=== PATIENT | male | born 1955 | race African-American/Black ===

== ENCOUNTER 2017-04-09 18:26 | Emergency (ER) | payer OTHER ==
[~2017-04-09] VITALS: Ht 188 cm; Wt 95.3 kg
[~2017-04-09 18:26] MED LIST: ATEN25TA PO; IBUP-1060 PO; OXYC-328 PO; TRAM50TA PO
[2017-04-09 19:50] VITALS: BP 140/90
--- NOTE | 2017-04-13 06:09 | ED.ADGEN ---
Past Medical History Past Medical History: Anxiety, Bipolar, Depression, High Cholesterol, Hypertension, Schizophrenia Additional Past Medical Histor: chronic back pain Past Surgical History: No Surgical History Additional Past Surgical Histo: hernia, back surgery Alcohol Use: Occasionally Drug Use: Marijuana Adult General Chief Complaint Chief Complaint: PAIN CONTROL HPI HPI Patient is a 61 year old -[place] male with history of bipolar disorder who presents with request for narcotic medication refill. Patient states his PCP discontinued his OxyContin, Xanax and other narcotics approximately 3 days due to concerns with compliance with follow-up and medication overuse. Patient states he feels anxious and is starting to experience withdrawal symptoms. He reports generalized malaise and nausea. Denies chest pain palpitation shortness of breath vomiting and diarrhea. No fever chills, sweats, He denies withdrawal seizures. He is asking for medications to get him through this weekend until he can's follow-up with his PCP early next week. Patient states that his medications are for long-standing pain complaints and that he feels that it is unfair for his doctor to stop these abruptly. Review of Systems Review of Systems ROS as per HPI. Allergies Allergies Allergies Coded Allergies Type Severity Reaction Last Updated Verified No Known Drug Allergies 05/20/15 No Physical Exam Physical Exam Constitutional: Well developed, well nourished, no acute distress, non-toxic appearance. [] HENT: Normocephalic, atraumatic, bilateral external ears normal, oropharynx moist, no oral exudates, nose normal. [] Eyes: PERRLA, EOMI, conjunctiva normal, no discharge. [] Neck: Normal range of motion, no tenderness, supple, no stridor. [] Cardiovascular:Heart rate regular rhythm, no murmur [] Lungs & Thorax: Bilateral breath sounds clear to auscultation [] Abdomen: Bowel sounds normal, soft, no tenderness, no masses, no pulsatile masses. [] Skin: Warm, dry, no erythema, no rash. [] Back: No tenderness. [] Extremities: No tenderness, no cyanosis, no clubbing, ROM intact, no edema. [] Neurologic: Alert and oriented X 3, normal motor function, normal sensory function, no focal deficits noted. [] Psychologic: Affect normal, judgement normal, mood normal. [] Current Patient Data Vital Signs Vital Signs Date Time Temp Pulse Resp B/P (MAP) Pulse Ox O2 Delivery O2 Flow Rate FiO2 04/09/17 19:50 84 31 98 04/09/17 18:35 98.0 165/99 (121) Room Air 98.0 EKG EKG [] Radiology/Procedures Radiology/Procedures [] Course & Med Decision Making Course & Med Decision Making Pertinent Labs and Imaging studies reviewed. (See chart for details) [Patient with headache use findings in the ED. We'll prescribe patient short course of tramadol and antiemetics to help compensate for withdrawal symptoms. Will defer further management of chronic pain to the patient's PCP or management trainee.] Dragon Disclaimer Dragon Disclaimer This electronic medical record was generated, in whole or in part, using a voice recognition dictation system. OMERO DUNAWAY DO Apr 13, 2017 06:09
== END 2017-04-09 20:24 | disposition home or self-care (01) ==
LOC: ER 18:26
DX: Z76.0 Encounter for issue of repeat prescription (principal); R51 Headache; R53.81 Other malaise; R11.0 Nausea; F41.9 Anxiety disorder, unspecified; F31.9 Bipolar disorder, unspecified; E78.00 Pure hypercholesterolemia, unspecified; I10 Essential (primary) hypertension; F20.9 Schizophrenia, unspecified; F12.10 Cannabis abuse, uncomplicated
CPT/HCPCS: 99283

== ENCOUNTER 2017-04-11 08:18 | Emergency (ER) | payer OTHER ==
[~2017-04-11] VITALS: Ht 188 cm; Wt 95.3 kg
[2017-04-11 08:30] VITALS: BP 145/94
--- NOTE | 2017-04-11 09:01 | PHYS DOC ---
Past Medical History Past Medical History: Anxiety, Bipolar, Depression, High Cholesterol, Hypertension, Schizophrenia Additional Past Medical Histor: chronic back pain Past Surgical History: No Surgical History Additional Past Surgical Histo: hernia, back surgery Alcohol Use: Occasionally Drug Use: Marijuana Adult General Chief Complaint Chief Complaint: MEDICATION REFILL HPI HPI Patient is a 61 year old male with history of schizophrenia hypertension bipolar chronic back pain who presents requesting a prescription for medications that he was given yesterday from our ED. He states he was given prescriptions on a none prescription paper to present to the pharmacy, he states the pharmacy would not fill it they send him back to the ED to get an actual prescription. Review of Systems Review of Systems Constitutional: Denies fever or chills [] Eyes: Denies change in visual acuity, redness, or eye pain [] HENT: Denies nasal congestion or sore throat [] Respiratory: Denies cough or shortness of breath [] Cardiovascular: No additional information not addressed in HPI [] GI: Denies abdominal pain, nausea, vomiting, bloody stools or diarrhea [] : Denies dysuria or hematuria [] Musculoskeletal: Back pain Integument: Denies rash or skin lesions [] Neurologic: Denies headache, focal weakness or sensory changes [] Endocrine: Denies polyuria or polydipsia [] Allergies Allergies Allergies Coded Allergies Type Severity Reaction Last Updated Verified No Known Drug Allergies 05/20/15 No Physical Exam Physical Exam Constitutional: Well developed, well nourished, no acute distress, non-toxic appearance. [] HENT: Normocephalic, atraumatic, bilateral external ears normal, oropharynx moist, no oral exudates, nose normal. [] Eyes: PERRLA, EOMI, conjunctiva normal, no discharge. [] Neck: Normal range of motion, no tenderness, supple, no stridor. [] Cardiovascular:Heart rate regular rhythm, no murmur [] Lungs & Thorax: Bilateral breath sounds clear to auscultation [] Abdomen: Bowel sounds normal, soft, no tenderness, no masses, no pulsatile masses. [] Skin: Warm, dry, no erythema, no rash. [] Back: No tenderness, no CVA tenderness. [] Extremities: No tenderness, no cyanosis, no clubbing, ROM intact, no edema. [] Neurologic: Alert and oriented X 3, normal motor function, normal sensory function, no focal deficits noted. [] Psychologic: Affect normal, judgement normal, mood normal. [] Current Patient Data Vital Signs Vital Signs Date Time Temp Pulse Resp B/P (MAP) Pulse Ox O2 Delivery O2 Flow Rate FiO2 04/11/17 08:30 98.0 76 20 93 Room Air 98.0 EKG EKG [] Radiology/Procedures Radiology/Procedures [] Course & Med Decision Making Course & Med Decision Making Pertinent Labs and Imaging studies reviewed. (See chart for details) Patient is in the ED requesting we write a prescription for him because yesterday it was written on and none prescription paper. I did call [facility] on [address] and states to confirm this patient has not fever the prescription. This stated none was presented to the pharmacy. He did state patient receives alprazolam, oxycodone and OxyContin from the PCP. They did states he is due for a refill of all his pain medicines. I gave patient a prescription for atenolol 25 mg 1 tablet daily. I also gave him a prescription for tramadol 20tablets oxycodone 20 tablets and ibuprofen Dragon Disclaimer Dragon Disclaimer This electronic medical record was generated, in whole or in part, using a voice recognition dictation system. Departure Departure Impression: Primary Impression: Back pain Disposition: 01 HOME, SELF-CARE Condition: STABLE Referrals: NON,STAFF (PCP) follow up with your doctor next week Patient Instructions: Back Pain, Adult Additional Instructions: We highly recommend you follow-up with your primary care doctor for refills of all your medications. We will give you a short supply for today Scripts Ibuprofen (IBUPROFEN) 800 Mg Tablet 800 MG PO PRN Q6HRS Y for INFLAMMATION, #20 TAB Prov: LOTUS CAI SWINGING CUT OFF SAW OPERATOR 04/11/17 Oxycodone/Apap 10-325 (PERCOCET 10-325 MG TABLET) 1 Each Tablet 1 TAB PO Q4-6HRS, #20 TAB Prov: LOTUS CAI SWINGING CUT OFF SAW OPERATOR 04/11/17 Tramadol Hcl (TRAMADOL HCL) 50 Mg Tablet 1 TAB PO PRN Q6HRS, #20 TAB Prov: LOTUS CAI SWINGING CUT OFF SAW OPERATOR 04/11/17 Atenolol (ATENOLOL) 25 Mg Tablet 1 TAB PO DAILY, #20 TAB 5 Refills Prov: LOTUS CAI APRN 04/11/17 Problem Qualifiers Primary Impression: Back pain Back pain location: low back pain Chronicity: chronic Back pain laterality : bilateral Sciatica presence: with sciatica Sciatica laterality: bilateral sciatica Qualified Codes: M54.42 - Lumbago with sciatica, left side ; M54.41 - Lumbago with sciatica, right side; G89.29 - Other chronic pain LOTUS CAI SWINGING CUT OFF SAW OPERATOR Apr 11, 2017 09:01
[2017-04-11] MEDS ORDERED: OXYC-328 PO (09:08)
[2017-04-11] MEDS ORDERED: TRAM50TA PO (09:08)
[2017-04-11] MEDS ORDERED: IBUP-1060 PO (09:08)
[2017-04-11] MEDS ORDERED: ATEN25TA PO (09:08)
[2017-04-11] MEDS ORDERED: oxyCODONE/APAP 5/325 1 TAB TABLET PO ONE (09:45)
== END 2017-04-11 09:35 | disposition home or self-care (01) ==
LOC: ER 08:18
DX: Z76.0 Encounter for issue of repeat prescription (principal); G89.29 Other chronic pain; M54.41 Lumbago with sciatica, right side; F41.9 Anxiety disorder, unspecified; F31.9 Bipolar disorder, unspecified; E78.00 Pure hypercholesterolemia, unspecified; I10 Essential (primary) hypertension; F20.9 Schizophrenia, unspecified; F12.10 Cannabis abuse, uncomplicated
CPT/HCPCS: 99283

== ENCOUNTER 2017-04-19 19:43 | Emergency (ER) | payer OTHER ==
[~2017-04-19] VITALS: Ht 182.9 cm; Wt 95.3 kg
[2017-04-19 19:55] VITALS: BP 130/89
[2017-04-19] MEDS ORDERED: oxyCODONE/APAP 10/325 1 TAB TABLET PO ONE (20:15)
--- NOTE | 2017-04-19 20:18 | PHYS DOC ---
Past Medical History Past Medical History: Anxiety, Bipolar, Depression, High Cholesterol, Hypertension, Schizophrenia Additional Past Medical Histor: chronic back pain Past Surgical History: No Surgical History Additional Past Surgical Histo: hernia, back surgery Alcohol Use: Occasionally Drug Use: Marijuana Adult General Chief Complaint Chief Complaint: PAIN CONTROL HPI HPI Patient is a 61 year old male presents to the emergency room stating that he is having back pain and discomfort. Patient states he has chronic pain issues does see a primary care physician and comes to us home. He states the primary care physician came to us off on Wednesday refused provide him with any more pain medication which she takes oxycodone, OxyContin. Patient states that he was also seen here and received prescriptions for oxycodone as well as tramadol. Patient states that he is unable to get into her physician as he does not have one at this time. Patient denies any injury or trauma. Patient does state he has a history of chronic addiction to pain medication. Patient denies any trauma or any injury denies any loss of bowel or bladder. He does have a back brace in place at this time. He does use a walker to ambulate with. Review of Systems Review of Systems Constitutional: Denies fever or chills [] Eyes: Denies change in visual acuity, redness, or eye pain [] HENT: Denies nasal congestion or sore throat [] Respiratory: Denies cough or shortness of breath [] Cardiovascular: No additional information not addressed in HPI [] GI: Denies abdominal pain, nausea, vomiting, bloody stools or diarrhea [] : Denies dysuria or hematuria [] Musculoskeletal: Chronic back pain to denies joint pain Integument: Denies rash or skin lesions [] Neurologic: Denies headache, focal weakness or sensory changes [] Endocrine: Denies polyuria or polydipsia [] Current Medications Current Medications Current Medications Medications (Trade) Dose Ordered Sig/Michael Start Time Stop Time Status Last Admin Dose Admin Oxycodone/ Acetaminophen (Percocet 10/325) 1 tab 1X ONCE 04/19/17 20:15 04/19/17 20:16 UNV Allergies Allergies Allergies Coded Allergies Type Severity Reaction Last Updated Verified No Known Drug Allergies 05/20/15 No Physical Exam Physical Exam Constitutional: Well developed, well nourished, no acute distress, non-toxic appearance. [] HENT: Normocephalic, atraumatic, bilateral external ears normal, oropharynx moist, no oral exudates, nose normal. [] Eyes: PERRLA, EOMI, conjunctiva normal, no discharge. [] Neck: Normal range of motion, no tenderness, supple, no stridor. [] Cardiovascular:Heart rate regular rhythm, no murmur [] Lungs & Thorax: Bilateral breath sounds clear to auscultation [] Skin: Warm, dry, no erythema, no rash. [] Back: Patient with back brace in place unable to fully access the lower back. Extremities: No tenderness, no cyanosis, no clubbing, ROM intact, no edema. Peripheral pulses 2+ cap refill brisk less than 2 seconds. Patient was able to ambulate with walker with no difficulty. Neurologic: Alert and oriented X 3, normal motor function, normal sensory function, no focal deficits noted. [] Psychologic: Affect normal, judgement normal, mood normal. [] EKG EKG [] Radiology/Procedures Radiology/Procedures [] Course & Med Decision Making Course & Med Decision Making Pertinent Labs and Imaging studies reviewed. (See chart for details) Spoke with patient in regards to providing chronic pain medication here in the emergency department. Instructed patient that the emergency department is not designed to provide chronic pain medication. Patient states I just needed to get pain medication until Wednesday. Patient then states he has a doctor's appointment scheduled for Wednesday however he continues to state that he does not have a doctor to follow up with. Patient continues to state that he does not have a primary care physician anymore follow-up with for pain management. Patient will be provided with oxycodone here in the emergency department. He'll be discharged home in stable condition. He will be provided with a doctor's list to help him find somebody to help with his chronic pain management. Patient was encouraged to take ibuprofen or Tylenol for pain and discomfort as well. Patient will be discharged home in stable condition signs and symptoms to return back to emergency department have been provided. All questions and concerns of been answered at this time. [] Dragon Disclaimer Dragon Disclaimer This electronic medical record was generated, in whole or in part, using a voice recognition dictation system. Departure Departure Impression: Primary Impression: Chronic back pain Disposition: HOME, SELF-CARE Condition: STABLE Referrals: NO PCP (PCP) Patient Instructions: Chronic Back Pain Additional Instructions: You've been provided with pain medication in the emergency department. However the emergency department is not designed take care of chronic pain management conditions. Follow-up with either her primary care physician or a pain management physician. Return back to emergency department for signs and symptoms of become worse. You may take Tylenol or ibuprofen for pain and discomfort. RATNA MARQUIS APRN Apr 19, 2017 20:18
== END 2017-04-19 20:38 | disposition home or self-care (01) ==
LOC: ER 19:43
DX: G89.29 Other chronic pain (principal); M54.5 Low back pain; F20.9 Schizophrenia, unspecified; F31.9 Bipolar disorder, unspecified; E78.00 Pure hypercholesterolemia, unspecified; I10 Essential (primary) hypertension; F12.10 Cannabis abuse, uncomplicated
CPT/HCPCS: 99283

== ENCOUNTER 2017-05-27 18:29 | Emergency (ER) | payer MEDICARE, OTHER ==
[2017-05-27 19:00] VITALS: BP 115/80
--- NOTE | 2017-05-27 19:34 | PHYS DOC ---
Past Medical History Past Medical History: Anxiety, Arthritis, Bipolar, Depression, High Cholesterol , Hypertension, Schizophrenia Additional Past Medical Histor: chronic back pain,DRUG SEEKING BEHAVIOR Past Surgical History: No Surgical History Additional Past Surgical Histo: hernia, back surgery Alcohol Use: Occasionally Drug Use: Marijuana Adult General Chief Complaint Chief Complaint: LOWER BACK PAIN OR INJURY HPI HPI Patient is a 61 year old L presents to the emergency department with complaints of chronic low extremity pain. Patient states he takes OxyContin 20 mg and oxycodone 30 mg on a regular schedule. He states that he misplaced his medications and is unable to find him. He spoke with his primary care provider on Wednesday whom refused to refill his medications. Patient's in the emergency department seeking a refill of his chronic use pain medications. Review of Systems Review of Systems Constitutional: Denies fever or chills [] Eyes: Denies change in visual acuity, redness, or eye pain [] HENT: Denies nasal congestion or sore throat [] Respiratory: Denies cough or shortness of breath [] Cardiovascular: No additional information not addressed in HPI [] GI: Denies abdominal pain, nausea, vomiting, bloody stools or diarrhea [] : Denies dysuria or hematuria [] Musculoskeletal: Chronic low back and extremity pain Integument: Denies rash or skin lesions [] Neurologic: Denies headache, focal weakness or sensory changes [] Endocrine: Denies polyuria or polydipsia [] Allergies Allergies Allergies Coded Allergies Type Severity Reaction Last Updated Verified No Known Drug Allergies 05/20/15 No Physical Exam Physical Exam Constitutional: Well developed, well nourished, no acute distress, non-toxic appearance. [] HENT: Normocephalic, atraumatic, bilateral external ears normal, oropharynx moist, no oral exudates, nose normal. [] Eyes: PERRLA, EOMI, conjunctiva normal, no discharge. [] Neck: Normal range of motion, no tenderness, supple, no stridor. [] Cardiovascular:Heart rate regular rhythm, no murmur [] Lungs & Thorax: Bilateral breath sounds clear to auscultation [] Abdomen: Bowel sounds normal, soft, no tenderness, no masses, no pulsatile masses. [] Skin: Warm, dry, no erythema, no rash. [] Back: No tenderness, no CVA tenderness. [] Extremities: No tenderness, no cyanosis, no clubbing, ROM intact, no edema. [] Neurologic: Alert and oriented X 3, normal motor function, normal sensory function, no focal deficits noted. [] Psychologic: Affect normal, judgement normal, mood normal. [] EKG EKG [] Radiology/Procedures Radiology/Procedures [] Course & Med Decision Making Course & Med Decision Making Pertinent Labs and Imaging studies reviewed. (See chart for details) []Patient will be given 50 g of fentanyl IM in the emergency department. I did advise him he would not be given a refill on his chronic use pain medications. He needs to follow-up with his primary care provider to discuss options for continued treatment until his refill is available. Patient verbalizes understanding and is in agreement with this plan. Dragon Disclaimer Dragon Disclaimer This electronic medical record was generated, in whole or in part, using a voice recognition dictation system. Departure Departure Impression: Primary Impression: Chronic back pain Disposition: HOME, SELF-CARE Condition: STABLE Referrals: NO PCP (PCP) Patient Instructions: Chronic Back Pain, Chronic Pain Management Additional Instructions: Follow-up primary care provider tomorrow for further evaluation and recommendations for treatment of your chronic pain condition Problem Qualifiers Primary Impression: Chronic back pain Back pain location: low back pain Back pain laterality: bilateral Sciatica presence: without sciatica Qualified Codes: M54.5 - Low back pain; G89.29 - Other chronic pain ÁNGELA CORONA APRN May 27, 2017 19:34
[2017-05-27] MEDS ORDERED: fentaNYL PF VIAL 100 MCG/2 ML VIAL IM ONE (19:45)
== END 2017-05-27 19:39 | disposition home or self-care (01) ==
LOC: ER 18:29
DX: G89.29 Other chronic pain (principal); M54.5 Low back pain; F41.9 Anxiety disorder, unspecified; M19.90 Unspecified osteoarthritis, unspecified site; F31.9 Bipolar disorder, unspecified; E78.00 Pure hypercholesterolemia, unspecified; I10 Essential (primary) hypertension; F20.9 Schizophrenia, unspecified
CPT/HCPCS: 96372; 99283; J3010